=== PATIENT | male | born 2000 | race Caucasian/White ===

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

== ENCOUNTER → 2021-10-07 | Outpatient (CLI) | payer SELFPAY ==
--- NOTE | 2021-10-07 18:44 | CT_ITS ---
STUDY: CT Abdomen And Pelvis W/ Contrast Injection 10/07/2021 7:25 PM REASON FOR EXAM: Male, 21 years old. ABDOMINAL PAIN inguinal pain, rule out recurrent hernia TECHNIQUE: Transaxial images were obtained without oral contrast, and with IV 100mL Isovue-300 intravenous contrast. Individualized dose optimization techniques were used for this CT. COMPARISON: None. FINDINGS: The visualized lung bases are unremarkable. The visualized portions of the heart are within normal limits. Unremarkable liver. Unremarkable gallbladder and extrahepatic biliary system. Unremarkable spleen. Unremarkable pancreas. Unremarkable bilateral adrenal glands. No acute findings of the right kidney. No acute findings of the left kidney. Unremarkable visualized stomach. Unremarkable small intestine. Unremarkable colon. The appendix is visualized and appears unremarkable. There are no acute findings of the abdominal aorta. Unremarkable inferior vena cava. Subcentimeter mesenteric lymph nodes. Unremarkable urinary bladder. There is an umbilical hernia containing fat. Unremarkable osseous structures. CT/Abdomen/Pelvis WITH Contrast IMPRESSION: (NOT LISTED IN ORDER OF SIGNIFICANCE) There is an umbilical hernia containing fat. There is NO left or right-sided inguinal hernia. Other findings as above. Electronically Signed: Albert Iglesias MD at 19:28 EDT ,
== END | disposition home or self-care (01) ==
LOC: CT 18:41
PROVIDERS: PCP Pediatrics; Visit Provider Internal Medicine
DX: R10.31 Right lower quadrant pain (principal); R10.32 Left lower quadrant pain; Z98.890 Other specified postprocedural states; Z87.19 Personal history of other diseases of the digestive system
CPT/HCPCS: 74177; Q9967

== ENCOUNTER → 2021-10-21 | Outpatient (CLI) | payer SELFPAY ==
[2021-10-21 15:03] LABS: Absolute Lymphocyte Count 1.45 X10^3/uL (0.83-4.51); Absolute Neutrophil Count 4.6 X10^3/uL (2.0-7.7); Basophil# 0.04 X10^3/uL; Basophil% 0.6 % (0-1); Eosinophil# 0.05 X10^3/uL; Eosinophils% 0.8 % (0-5); Hematocrit 49.2 % (40-54); Hemoglobin 16.1 g/dL (13.0-16.5); Lymphocyte # 1.45 X10^3/ul (0.83-4.51); Lymphocyte % 21.9 % (19-41); Mean Corp Hgb Conc 32.7 g/dL (32-36); Mean Corpuscular Hgb 29.9 pg (27.0-32.0); Mean Corpuscular Volume 91.3 fL (80-94); Mean Platelet Vol. 11.2 fl (6.2-12.0); Monocyte# 0.42 X10^3/uL; Monocyte% 6.4 % (0-10); NRBC Flagged by Analyzer 0 % (0-5); Neutrophil # 4.62 X10^3/uL (2.7-7.7); Neutrophil % 69.8 % (47-70); Platelet Count 249 K/mm3 (150-450); RBC Distribution Width CV 12.6 % (11.6-14.6); RBC Distribution Width SD 42.2 fl (35.1-43.9); Red Blood Count 5.39 M/mm3 (4.6-6.2); White Blood Count 6.6 K/mm3 (4.4-11.0)
[2021-10-21 15:19] LABS: ALB/GLOB Ratio 1.1 RATIO (0.9-2.4); AST(SGOT) 14 U/L (15-37); Alanine Aminotransfer ALT/SGPT 29 U/L (16-61); Alkaline Phosphatase 87 U/L (45-117); Anion Gap 7 (5-15); BUN 14 mg/dL (7-18); BUN/Creat Ratio 13.6 RATIO (10-20); Calcium,Total 9.8 mg/dL (8.5-10.1); Chloride 106 mmol/L (98-107); Creatinine, Serum 1.03 mg/dL (0.70-1.30); EST Glomerular Filtration Rate 97 mL/min (>60); Est Glom Filt Rate - Afr Amer 117 mL/min (>60); Globulin 3.7 g/dL (2.2-4.2); Glucose 84 mg/dL (74-106); PSA,Total- Diagnostic 0.79 ng/mL (0.0-4.0); Protein, Total 7.7 g/dL (6.4-8.2); Sodium Level 142 mmol/L (136-145)
== END | disposition home or self-care (01) ==
PROVIDERS: PCP Internal Medicine; Referring Provider Internal Medicine; Visit Provider Internal Medicine
DX: R10.31 Right lower quadrant pain (principal); R10.32 Left lower quadrant pain; R74.8 Abnormal levels of other serum enzymes; N50.819 Testicular pain, unspecified; Z98.890 Other specified postprocedural states; Z87.19 Personal history of other diseases of the digestive system
CPT/HCPCS: 36415; 80053; 84153; 85025

== ENCOUNTER 2022-04-05 02:13 | Emergency (ER) | payer SELFPAY ==
[2022-04-05 02:14] VITALS: BP 128/78; PULSE 64; RESP 17; TEMP 36.3; O2SAT 98; BMI 28.8
--- NOTE | 2022-04-05 02:39 | US_ITS ---
INDICATION: pain and swelling on left side X 2 days EXAMINATION: US Scrotum and Vascular Doppler Complete TECHNIQUE: Realtime ultrasound of the testicles was performed with grayscale, Color Doppler and spectral Doppler analysis. COMPARISON: CT abdomen and pelvis from 10/07/2021 FINDINGS: RIGHT: TESTIS: Right testicle measures 4.4 x 2.4 x 3.5 cm. Normal in size and echotexture, without focal lesion. COLOR DOPPLER: Normal arterial and venous flow present in the testicle with monophasic spectral Doppler waveforms. EPIDIDYMIS: Normal in size (epididymal head measures 13 x 8 x 10 mm) and echotexture, without focal lesion. Normal color Doppler flow pattern in the epididymis. HYDROCELE: No significant hydrocele. VARICOCELE: None. LEFT: TESTIS: Left testicle measures 4.5 x 2.6 x 2.8 cm. Normal in size and echotexture, without focal lesion. COLOR DOPPLER: Normal arterial and venous flow present in the testicle with monophasic spectral Doppler waveforms. EPIDIDYMIS: Left epididymal head slightly heterogeneous and prominent in size (17 x 8 x 11 mm) compared with right epididymal head, without focal lesion. Normal color Doppler flow pattern in the epididymis. HYDROCELE: No significant hydrocele. VARICOCELE: Left varicocele noted. OTHER: There appears to be bowel projecting into left inguinal canal and upper left hemiscrotum. US/Testicular with Arterial Flow IMPRESSION: 1. Left inguinal hernia containing bowel. 2. Slightly prominent and heterogeneous left epididymal head possibly reactive versus mild epididymitis. 3. Left varicocele also noted. 4. No evidence of testicular torsion. Electronically Signed: Edmar Putnam MD at 3:57 EST ,
--- NOTE | 2022-04-05 02:42 | EDS_ITS ---
HPI History of Present Illness Chief Complaint: Male Pain/Injury Informant: patient Narrative Narrative: Patient presents with left testicular soreness. This started on Tuesday when he was walking on a ball. He just started to get a little bit sore. When he wa s at home resting it seemed better. Earlier today he went fishing. He noticed that he just seemed to get more sore. This evening he notices there is a little swelling above his testicle. He states he has been urinating a little bit more than normal but there is no dysuria or hematuria. No discomfort at all. He may have been drinking little more fluids. He has no injury or trauma to the test icle. No prior abdominal surgery but he did have inguinal hernias done. He is not having pain in that area. [facility] Medical History Bone fracture Hearing problem Laceration of extensor muscle, fascia and tendon of right index finger at wrist and hand level, sequela Laceration of extensor structure of right index finger at hand level Other injury of extensor muscle, fascia and tendon of right index finger at wrist and hand level, initial encounter Home Medications naproxen 500 mg tablet 500 mg PO BID #14 tabs 04/05/22 [Rx Last Taken Unknown] Allergy/AdvReac Type Severity Reaction Status Date / Time Penicillins Allergy Hives Verified 04/05/22 02:17 Family History Grandmother Anemia Osteoporosis Aunt Anxiety Mother High cholesterol Osteoporosis Grandfather Diabetes Heart disease High cholesterol Grandmother Diabetes Surgical History History of hand surgery S/P hernia surgery Social History adopted: No household members: none housing: house current occupational status: employed current occupation: [employer] Smoking Status: Current some day smoker tobacco type: e-cigarettes Tobacco: How many years used: 1 Electronic Cigarette Use: not used alcohol intake: current alcohol intake frequency: a few times a week details: drinks om weekend substance use type: does not use what type of physical activity do you participate in: weight training frequency: 1-2 times per week allan/faith: Yarsani seatbelt use: always do you feel safe at home: Yes additional social history: DOES NOT USE ASPIRIN DOES USE IBUPROFEN ROS ROS ED Constitutional Constitutional ED: Denies chills or fever(s) ENT ENT ED: Denies rhinorrhea Cardiovascular Cardiovascular: Denies chest pain Respiratory/Chest Respiratory/Chest: Denies cough or dyspnea Gastrointestinal Gastrointestinal: Denies abdominal pain, constipation, diarrhea, nausea or vomiting Genitourinary Genitourinary ED: Reports urinary frequency and other Details: See history of present illness ; Denies dysuria or hematuria Musculoskeletal Musculoskeletal: Denies back pain or myalgias Integumentary Denies rash Neurologic Neurologic: Denies paresthesias or weakness Endocrine Endocrinology: Reports polyuria; Denies polydipsia Hematologic/Lymphatic Hematologic/Lymphatic: Denies easy bleeding or easy bruising EXAM Physical Exam Narrative Exam Narrative: Patient awake alert sitting comfortably in bed. He does not look toxic or ill. HEENT shows moist mucous membranes. Heart is regular without murmur gallop or rub. Lungs are clear bilaterally. Abdomen is actually soft nondistended with normal bowel sounds and completely nontender. No suprapubic or inguinal tenderness. No inguinal mass. shows no CVA tenderness. Penis looks normal. Both testicles actually have a normal lie and he has normal cremasteric reflex. He seems to have more tenderness above the left testicle than actually on it. I think this may represent more epididymitis. Although we was reporting redness I am not seeing any erythema. There is no indication of abscess or infection or cellulitis in this area. Skin shows no pallor or rash. Neurologically he is awake alert and appropriate. Const Vital Signs: 04/05/22 02:14 Temperature 97.3 F L Temperature Source Temporal Pulse Rate 64 Respiratory Rate 17 Blood Pressure 128/78 H Blood Pressure Mean 94 Pulse Ox 98 Oxygen Delivery Method Room Air MDM MDM MDM Narrative Medical decision making narrative: Ultrasound showed left inguinal hernia with some bowel. Possible reactive mild epididymitis. Left varicocele was noted. No evidence of torsion. Urine was completely clear. BGT was normal at 98. Patient was reexamined. I am not getting any tenderness or fullness in the inguinal area. I am not palpating a hernia at this time. The bowel loop may have spontaneously retracted. But he is not having symptoms nor exam findings of hernia. All his discomfort is really in the epididymal area. I think he is okay to go home. We have given him cautions about this to return. Lab Data Labs: Laboratory Results - last 24 hr 04/05/22 04/05/22 02:20 03:00 Urine Color Yellow Urine Clarity Clear Urine pH 7.0 Ur Specific [place] 1.010 Urine Protein Negative Urine Glucose (UA) Normal Urine Ketones Negative Urine Occult Blood Negative Urine Nitrite Negative Urine Bilirubin Negative Urine Urobilinogen Normal Ur Leukocyte Esterase Negative Urine RBC 0 SEEN Urine WBC 0 SEEN Ur Squamous Epith Cells 0 SEEN Urine Bacteria 0 SEEN Urine Mucus 0 SEEN POC Glucose 98 Radiography Diagnostic Testing: Clinical Impression(s) from Imaging Studies Testicular Ultrasound 04/05/22 02:39 IMPRESSION: 1. Left inguinal hernia containing bowel. 2. Slightly prominent and heterogeneous left epididymal head possibly reactive versus mild epididymitis. 3. Left varicocele also noted. 4. No evidence of testicular torsion. Electronically Signed: Edmar Putnam MD at 3:57 EST , Discharge Plan Triage Chief Complaint: Male Pain/Injury ED Provider: Johan Luz Dx/Rx/DC Orders Clinical Impression: Epididymitis, left Instructions: ED Epididymitis Prescriptions: New naproxen 500 mg tablet 500 mg PO BID Qty: 14 0RF Primary Care Provider: Care Physician,No Primary Referrals: Partha Kay MD [Med Staff - Active Staff] - 3-5 Days if not improving Care Physician,No Primary [Primary Care Provider] - Disposition Disposition: Home, Self Care
[2022-04-05 02:50] LABS: Bacteria 0 SEEN /hpf (None Seen); Mucous, Urine 0 SEEN /hpf (<or=2+); Red Blood Cells-Urine 0 SEEN /hpf (0-5); Squamous Epithelial Cells - UA 0 SEEN /hpf (0-5); White Blood Cells 0 SEEN /hpf (0-5)
[2022-04-05 02:53] LABS: Color, Urine Yellow (Yellow); Glucose, Dipstick Normal (Normal); Ketone-Dipstick Negative (Negative); Leukocyte Esterase-Dipstick Negative /ul (Negative); Nitrite-Dipstick Negative (Negative); Occult Blood-Urine Negative /ul (Negative); Protein-Dipstick Negative (Negative); Urine Bilirubin Dipstick Negative (Negative); Urine Clarity Clear (Clear); Urine Urobilinogen Normal (Normal)
[2022-04-05 03:20] LABS: Bedside Glucose 98 mg/dL (74-106)
[2022-04-05 04:16] VITALS: O2SAT 99
== END 2022-04-05 04:19 | disposition home or self-care (01) ==
PROVIDERS: Emergency Provider Emergency Medicine; Visit Provider Emergency Medicine
DX: N45.1 Epididymitis (principal); F17.290 Nicotine dependence, other tobacco product, uncomplicated
CPT/HCPCS: 76870; 81001; 82962; 93976; 99282